=== PATIENT | male | born 1985 ===

== ENCOUNTER 2018-05-25 18:50 | Emergency (ER) | payer OTHER ==
[~2018-05-25] VITALS: Ht 188 cm; Wt 77.1 kg
[2018-05-25] MEDS ORDERED: ADULT ASPIRIN81 MG (19:05)
[2018-05-25] MEDS ORDERED: PANADOL EXTRA500 MG (19:05)
== END 2018-05-26 19:31 | disposition designated cancer center or children's hospital (05) ==
LOC: ER 18:50
DX: D69.49 Other primary thrombocytopenia (principal); C94.80 Other specified leukemias not having achieved remission; R07.89 Other chest pain; R06.02 Shortness of breath; R50.9 Fever, unspecified